=== PATIENT | male | born 1960 | race Caucasian/White ===

== ENCOUNTER 2019-01-30 12:25 | Inpatient (IN) | payer OTHER ==
[~2019-01-30] VITALS: Ht 177.8 cm; Wt 95.1 kg
--- NOTE | 2019-01-30 13:01 | NUR ---
IVELISSE RN: PT SENT FROM [facility]. PT STATES HAD DRY COUGH X2 MONTHS. INCREASED SOB AND CHEST PAIN SINCE THIS WEEKEND.
[2019-01-30] MEDS ORDERED: ALBUTEROL/IPRATROPIUM 2.5MG/0.5MG, 3 ML ONE (13:12)
[2019-01-30] MEDS: ALBUTEROL/IPRATROPIUM 2.5MG/0.5MG, 3 ML NPPB SCH ×2 (13:14→20:10)
--- NOTE | 2019-01-30 13:17 | NUR ---
rt and edmd to bs. iv established and labs and bc x2 drawn. vss. awaiting further orders.
[2019-01-30 13:27] LABS: BASOPHILS # (AUTO) 0.02 x10^3/uL (0-0.1); BASOPHILS % (AUTO) 0 % (0-1); EOSINOPHILS # (AUTO) 0.01 x10^3/uL (0-0.4); EOSINOPHILS % (AUTO) 0 % (1-7); LYMPHOCYTES # (AUTO) 0.78 x10^3/uL (1-3.4); LYMPHOCYTES % (AUTO) 5 % (22-44); MD NO; MEAN CORPUSCULAR HEMOGLOBIN 31.2 pg (27.5-34.5); MEAN CORPUSCULAR HGB CONC 33.3 g/dL (33.2-36.2); MEAN CORPUSCULAR VOLUME 93.5 fL (81-97); MEAN PLATELET VOLUME 8.7 fL (7.4-10.4); MONOCYTES # (AUTO) 1.43 x10^3/uL (0.2-0.8); MONOCYTES % (AUTO) 10 % (2-9); NEUTROPHILS # (AUTO) 12.59 x10^3/uL (1.8-6.8); NEUTROPHILS % (AUTO) 85 % (42-75); PLATELET COUNT 167 x10^3/uL (130-400); RED BLOOD COUNT 5.57 x10^6/uL (4.38-5.82); RED CELL DISTRIBUTION WIDTH 13.2 % (9.4-14.8)
[2019-01-30] MEDS: AZITHROMYCIN 500 MG in SODIUM CHLORIDE 0.9% 250 ML IVPB ONE ×2 (13:30→13:40)
[2019-01-30] MEDS ORDERED: CEFTRIAXONE PMX 1GM/50ML 50 ML IVPB ONE (13:30)
[2019-01-30] MEDS ORDERED: CEFTRIAXONE PMX 1GM/50ML 50 ML ONE (13:35)
[2019-01-30 13:36] LABS: ALBUMIN 3.9 g/dL (3.4-5.0); ANION GAP 8 mmol/L (5-15); CALCIUM 8.9 mg/dL (8.5-10.1); CHLORIDE 103 mmol/L (98-107); CREATININE 1.02 mg/dL (0.7-1.3)
[2019-01-30] MEDS ORDERED: SODIUM CHLORIDE FLUSH 10ML SYR IVF PRN (14:00)
[2019-01-30] MEDS ORDERED: ONDANSETRON 2MG/ML, 2ML IVPush ONE (14:00)
--- NOTE | 2019-01-30 14:00 | NUR ---
report to josh omalley. pt [place] for transport.
[2019-01-30] MEDS ORDERED: hydrALAzine 20 MG/ML, 1ML IVPush PRN (14:30)
[2019-01-30] MEDS: NICOTINE 21 MG/24 HR PATCH.TD24 TD SCH (14:30)
[2019-01-30] MEDS ORDERED: ACETAMINOPHEN 325 MG TABLET PO PRN (14:30)
[2019-01-30] MEDS ORDERED: KETOROLAC 30 MG/1 ML IV PRN (14:30)
[2019-01-30] MEDS ORDERED: ONDANSETRON 2MG/ML, 2ML IVPush PRN (14:30)
[2019-01-30] MEDS: SODIUM CHLORIDE 0.9% 1,000 ML IV SCH (15:22)
[2019-01-30] MEDS: ENOXAPARIN 40 MG/0.4 ML SQ SCH (15:23)
[2019-01-30] MEDS: methylPREDNISolone SOD SUCC 125 MG/2 ML IVPush SCH ×2 (15:23→19:42)
[2019-01-30] MEDS: GUAIFENESIN 200 MG TABLET PO SCH ×2 (15:24→19:42)
[2019-01-30 16:22] VITALS: BP 130/80
[2019-01-30 20:21] VITALS: BP 145/82
[2019-01-31 00:56] VITALS: BP 138/82
[2019-01-31] MEDS: methylPREDNISolone SOD SUCC 125 MG/2 ML IVPush SCH ×4 (02:51→19:35)
[2019-01-31 05:01] LABS: BASOPHILS % (AUTO) 0 % (0-1); EOSINOPHILS % (AUTO) 0 % (1-7); LYMPHOCYTES # (AUTO) 0.72 x10^3/uL (1-3.4); LYMPHOCYTES % (AUTO) 5 % (22-44); MD NO; MEAN CORPUSCULAR HEMOGLOBIN 31.1 pg (27.5-34.5); MEAN CORPUSCULAR HGB CONC 33.5 g/dL (33.2-36.2); MEAN CORPUSCULAR VOLUME 92.9 fL (81-97); MONOCYTES # (AUTO) 0.35 x10^3/uL (0.2-0.8); MONOCYTES % (AUTO) 2 % (2-9); NEUTROPHILS # (AUTO) 14.03 x10^3/uL (1.8-6.8); NEUTROPHILS % (AUTO) 93 % (42-75); PLATELET COUNT 181 x10^3/uL (130-400); RED BLOOD COUNT 5.32 x10^6/uL (4.38-5.82); RED CELL DISTRIBUTION WIDTH 13.3 % (9.4-14.8)
[2019-01-31 05:09] LABS: CHLORIDE 108 mmol/L (98-107)
[2019-01-31 05:15] LABS: ALANINE AMINOTRANSFERASE 18 U/L (12-78); ALBUMIN 3.4 g/dL (3.4-5.0); ALKALINE PHOSPHATASE 73 U/L (45-117); ANION GAP 7 mmol/L (5-15); BILIRUBIN,TOTAL 0.4 mg/dL (0.2-1.0); CALCIUM 8.7 mg/dL (8.5-10.1); CREATININE 1.01 mg/dL (0.7-1.3); TOTAL PROTEIN 7.9 g/dL (6.4-8.2)
[2019-01-31 06:38] VITALS: BP 143/84
[2019-01-31] MEDS: ALBUTEROL/IPRATROPIUM 2.5MG/0.5MG, 3 ML NPPB SCH (06:43)
[2019-01-31] MEDS ORDERED: ALBUTEROL/IPRATROPIUM 2.5MG/0.5MG, 3 ML NPPB PRN (07:00)
[2019-01-31] MEDS: SODIUM CHLORIDE 0.9% 1,000 ML IV SCH ×2 (08:33→21:36)
[2019-01-31] MEDS: GUAIFENESIN 200 MG TABLET PO SCH ×3 (08:34→19:35)
[2019-01-31] MEDS: CEFTRIAXONE PMX 2GM/50ML 50 ML IV SCH (09:44)
[2019-01-31] MEDS: AZITHROMYCIN 500 MG in SODIUM CHLORIDE 0.9% 250 ML IV SCH (12:08)
[2019-01-31 13:00] VITALS: BP 147/82
[2019-01-31] MEDS: INSULIN LISPRO 100 UNITS/ML, PEN SQ-INSULIN SCH ×3 (13:39→20:24)
[2019-01-31] MEDS: NICOTINE 21 MG/24 HR PATCH.TD24 TD SCH (14:30)
[2019-01-31] MEDS: ENOXAPARIN 40 MG/0.4 ML SQ SCH (15:11)
[2019-01-31 19:08] VITALS: BP 132/80
[2019-02-01 01:16] VITALS: BP 126/72
[2019-02-01] MEDS: methylPREDNISolone SOD SUCC 125 MG/2 ML IVPush SCH ×3 (02:39→14:45)
[2019-02-01 06:37] VITALS: BP 147/86
[2019-02-01] MEDS: INSULIN LISPRO 100 UNITS/ML, PEN SQ-INSULIN SCH ×3 (07:00→16:00)
[2019-02-01] MEDS: SODIUM CHLORIDE 0.9% 1,000 ML IV SCH (09:30)
[2019-02-01] MEDS: GUAIFENESIN 200 MG TABLET PO SCH ×2 (09:36→16:20)
[2019-02-01] MEDS: CEFTRIAXONE PMX 2GM/50ML 50 ML IV SCH (09:36)
[2019-02-01] MEDS: AZITHROMYCIN 500 MG in SODIUM CHLORIDE 0.9% 250 ML IV SCH (12:16)
[2019-02-01 14:10] VITALS: BP 129/73
[2019-02-01] MEDS: NICOTINE 21 MG/24 HR PATCH.TD24 TD SCH (14:30)
[2019-02-01] MEDS: ENOXAPARIN 40 MG/0.4 ML SQ SCH (14:46)
[2019-02-01] MEDS ORDERED: TIOT18CA INH (14:58)
[2019-02-01] MEDS ORDERED: CEFD300C37 PO (14:58)
[2019-02-01] MEDS ORDERED: NICO-487 TD (14:58)
[2019-02-01] MEDS ORDERED: FLUT1DIS3 INH (14:58)
[2019-02-01] MEDS ORDERED: PRED10TA PO (14:58)
[2019-02-01] MEDS ORDERED: AZIT500T5 PO (14:58)
[2019-02-01] MEDS ORDERED: GUAI200T3 PO (14:58)
== END 2019-02-01 19:29 | disposition home or self-care (01) | DRG 871 ==
LOC: ED 13:36 → EDIP 13:50 → 3NE 14:31
PROVIDERS: ADMIT Internal Medicine; ATTEND Internal Medicine
DX: A41.9 Sepsis, unspecified organism (principal); J15.9 Unspecified bacterial pneumonia; J96.01 Acute respiratory failure with hypoxia; J44.0 Chronic obstructive pulmonary disease with (acute) lower respiratory infection; J44.1 Chronic obstructive pulmonary disease with (acute) exacerbation; F17.200 Nicotine dependence, unspecified, uncomplicated; Y92.89 Other specified places as the place of occurrence of the external cause; T38.0X5A Adverse effect of glucocorticoids and synthetic analogues, initial encounter
CPT/HCPCS: 36415; 99285; J7620; 80048; 80053; 82040; 82962; 83605; 83735; 84100; 85025; 87040; 87070; 87205; 94640; 96374; G0378; J0456; J0696; J1650; J1815; J2930; J7030; J7050